=== PATIENT | male | born 1970 | race Hispanic/Latino ===

== ENCOUNTER → 2018-09-30 | Outpatient (CLI) | payer OTHER ==
[~2018-09-30] MED LIST: LISI-617 PO; METF-444 PO; SIMV40TA5 PO
== END | disposition home or self-care (01) ==
LOC: RAH 07:49
PROVIDERS: ATTEND Family Medicine
DX: R10.9 Unspecified abdominal pain (principal)
CPT/HCPCS: 76700

== ENCOUNTER 2022-11-10 11:47 | Emergency (ER) | payer BC, OTHER ==
[~2022-11-10] VITALS: Ht 170.2 cm; Wt 85.3 kg
[~2022-11-10 11:47] MED LIST changes: -LISI-617 PO; +LISI5TAB21 PO; +SIMV-46 PO; -SIMV40TA5 PO
[2022-11-10] MEDS ORDERED: TETRACAINE HCL 0.5% 4 ML OPHTH SOLN ONE (13:23)
[2022-11-10 13:49] LABS: BASOPHILS % (AUTO) 0.5 % (0.0-5.0); EOSINOPHILS % (AUTO) 0.9 % (0.0-8.0); HEMATOCRIT 46.4 % (42-54); LYMPHOCYTES % (AUTO) 23.8 % (21.0-51.0); MEAN CORPUSCULAR HEMOGLOBIN 27.2 pg (27.0-33.0); MEAN CORPUSCULAR HGB CONC 32.3 g/dL (32.0-36.0); MEAN CORPUSCULAR VOLUME 84.2 fL (79-99); NEUTROPHILS % (AUTO) 68.5 % (40.0-77.0); PLATELET COUNT (AUTO) 339 K/uL (130-400); RED BLOOD CELL COUNT(AUTO) 5.51 MIL/uL (4.50-6.20); RED CELL DISTRIBUTION WIDTH 12.7 % (11.0-15.5); WHITE BLOOD COUNT (AUTO) 7.9 K/uL (4.8-10.8)
[2022-11-10 14:02] LABS: CREATININE 0.8 mg/dL (0.5-1.5); POTASSIUM 4.2 mmol/L (3.5-5.1)
[2022-11-10 14:07] LABS: ALBUMIN 3.8 g/dL (3.5-5.0); TOTAL PROTEIN, SERUM 7.6 g/dL (6.0-8.3)
[2022-11-10] MEDS ORDERED: KETOROLAC 30MG VIAL (30MG/ML) IVP ONE (14:30)
[2022-11-10] MEDS ORDERED: ONDANSETRON 4MG INJ IVP ONE ×3 (14:30→19:30)
[2022-11-10] MEDS ORDERED: PHARMACY COMMUNICATION MISC SCH (15:00)
[2022-11-10] MEDS ORDERED: TIMOLOL MALEATE 0.25% 5 ML BOTTLE OU ONE (15:00)
[2022-11-10] MEDS ORDERED: ACETAZOLAMIDE SODIUM 500 MG VIAL IV SCH (15:00)
[2022-11-10] MEDS ORDERED: BRIMONIDINE TARTRATE 0.2% 5 ML BOTTLE OP SCH (15:45)
[2022-11-10] MEDS ORDERED: MORPHINE 4 MG SYG IVP ONE ×2 (17:00→19:30)
[2022-11-10 19:20] VITALS: BP 168/94
[2022-11-10] MEDS ORDERED: ONDANSETRON ODT 4MG TAB SL ONE (19:30)
[2022-11-10] MEDS ORDERED: HYDROCODONE/ACETAMINOPHEN 5/325 MG TAB PO ONE (19:30)
[2022-11-10] MEDS ORDERED: ONDA4TAB10 PO (19:34)
[2022-11-10] MEDS ORDERED: ACET-2079 PO (19:34)
[2022-11-11] MEDS ORDERED: PRED5TAB PO (16:55)
== END 2022-11-10 20:07 | disposition home or self-care (01) ==
LOC: EDH 11:47
DX: H40.89 Other specified glaucoma (principal); R11.2 Nausea with vomiting, unspecified; R51.9 Headache, unspecified; Z79.899 Other long term (current) drug therapy; Z79.84 Long term (current) use of oral hypoglycemic drugs; I10 Essential (primary) hypertension; E11.9 Type 2 diabetes mellitus without complications; Z90.49 Acquired absence of other specified parts of digestive tract; Z98.890 Other specified postprocedural states
CPT/HCPCS: 99291; 96374; 96375; 80053; 85347 ×3; 85025; 36415 ×2; 96376; J1120; J2405 ×3; J2270 ×2; J1885

== ENCOUNTER 2022-11-11 10:39 | Emergency (ER) | payer BC ==
[~2022-11-11] VITALS: Ht 170.2 cm; Wt 84.8 kg
[~2022-11-11 10:39] MED LIST changes: +ACET-2079 PO; +ONDA4TAB10 PO
[2022-11-11 11:29] LABS: BASOPHILS % (AUTO) 0.4 % (0.0-5.0); EOSINOPHILS % (AUTO) 0.3 % (0.0-8.0); HEMATOCRIT 45.1 % (42-54); LYMPHOCYTES % (AUTO) 14.8 % (21.0-51.0); MEAN CORPUSCULAR HEMOGLOBIN 28.2 pg (27.0-33.0); MEAN CORPUSCULAR VOLUME 85.4 fL (79-99); MONOCYTES % (AUTO) 3.8 % (3.0-13.0); NEUTROPHILS % (AUTO) 80.2 % (40.0-77.0); PLATELET COUNT (AUTO) 346 K/uL (130-400); RED BLOOD CELL COUNT(AUTO) 5.28 MIL/uL (4.50-6.20); RED CELL DISTRIBUTION WIDTH 12.6 % (11.0-15.5); WHITE BLOOD COUNT (AUTO) 9.2 K/uL (4.8-10.8)
[2022-11-11 11:46] LABS: CREATININE 0.9 mg/dL (0.5-1.5); POTASSIUM 4.2 mmol/L (3.5-5.1)
[2022-11-11 11:51] LABS: TOTAL PROTEIN, SERUM 7.9 g/dL (6.0-8.3)
[2022-11-11] MEDS ORDERED: LORAZEPAM 2 MG/ML 1 ML VIAL ONE (14:42)
[2022-11-11] MEDS ORDERED: LORAZEPAM 2 MG/ML 1 ML VIAL IVP ONE (15:00)
[2022-11-11] MEDS ORDERED: PRED5TAB PO (16:55)
[2022-11-11 17:04] VITALS: BP 147/96
== END 2022-11-11 17:06 | disposition home or self-care (01) ==
LOC: EDH 10:39
DX: E11.39 Type 2 diabetes mellitus with other diabetic ophthalmic complication (principal); H49.9 Unspecified paralytic strabismus; R11.2 Nausea with vomiting, unspecified; R42 Dizziness and giddiness; I10 Essential (primary) hypertension; Z90.49 Acquired absence of other specified parts of digestive tract; Z79.84 Long term (current) use of oral hypoglycemic drugs; Z79.899 Other long term (current) drug therapy
CPT/HCPCS: 36415; 70540; 70551; 71045; 80053; 84484; 85025; 93005; J2060